=== PATIENT | male | born 1990 | race American Indian/Alaskan Native ===

== ENCOUNTER 2017-06-20 10:53 | Emergency (ER) | payer SELFPAY ==
[2017-06-20 11:36] VITALS: BP 137/84
[2017-06-20] MEDS ORDERED: TETRACAINE 0.5% OU PRN (18:23)
[2017-06-20] MEDS ORDERED: FUL-GLO OP ONE (18:23)
--- NOTE | 2017-06-20 18:28 | Emergency Department Report ---
ED Eye Problem HPI - General Chief complaint: Eye Problems Stated complaint: RETINAL DETATCHMENT Time Seen by Provider: 06/20/17 18:23 Source: patient Mode of arrival: Ambulatory Limitations: No Limitations - History of Present Illness Initial comments: This is a 26-year-old male nontoxic, well nourished in appearance, no acute signs of distress presents to the ED with c/o of bilateral blurry vision and seeing floaters for a few months. Patient denies any eye pain, fever, chills, nausea, vomiting, headache, stiff neck, chest pain, shortness of breath, eye discharge, numbness or tingling. Patient denies any trauma to the region. Patient stated he did not follow-up with a primary care doctor due to. Patient denies PMH. chief complaint: other (blurry vision) -: month(s) (few) Onset Description: gradual Location: both eyes If Injury: none Severity scale (0 -10): 0 Consistency: constant Associated Symptoms: none Treatments Prior to Arrival: none - Related Data Home Medications Medication Instructions Recorded Confirmed Last Taken Unobtainable 06/20/17 06/20/17 Unknown Allergies Allergy/AdvReac Type Severity Reaction Status Date / Time No Known Allergies Allergy Verified 06/20/17 11:29 ED Review of Systems ROS: Stated complaint: RETINAL DETATCHMENT Other details as noted in HPI Constitutional: denies: chills, fever Eyes: denies: eye pain, eye discharge, vision change ENT: other (blurry vision). denies: ear pain, throat pain Respiratory: denies: cough, shortness of breath, wheezing Cardiovascular: denies: chest pain, palpitations Endocrine: no symptoms reported Gastrointestinal: denies: abdominal pain, nausea, diarrhea Genitourinary: denies: urgency, dysuria Musculoskeletal: denies: back pain, joint swelling, arthralgia Skin: denies: rash, lesions Neurological: denies: headache, weakness, paresthesias Psychiatric: denies: anxiety, depression Hematological/Lymphatic: denies: easy bleeding, easy bruising ED Past Medical Hx - Past Medical History Previous Medical History?: No - Surgical History Past Surgical History?: No - Social History Smoking Status: Never Smoker Substance Use Type: Alcohol, Marijuana - Medications Home Medications: Home Medications Medication Instructions Recorded Confirmed Last Taken Type Unobtainable 06/20/17 06/20/17 Unknown History ED Physical Exam - General Limitations: No Limitations General appearance: alert, in no apparent distress - Head Head exam: Present: atraumatic, normocephalic - Eye Eye exam: Present: normal appearance, PERRL, EOMI. Absent: scleral icterus, conjunctival injection, nystagmus, periorbital swelling, periorbital tenderness Pupils: Present: normal accommodation - Expanded Eye Exam Expanded Pupils: Regular, Round: Bilateral, Reactive: Bilateral Sclera/Conjunctival: Normal Inspection: Bilateral Visual acuity (R) = 20/: 50 Visual acuity (L) = 20/: 40 With correction: No IOP measured with: Tonopen (12 right. 14 left.) - ENT ENT exam: Present: normal exam, normal orophraynx, mucous membranes moist, TM's normal bilaterally, normal external ear exam - Neck Neck exam: Present: normal inspection, full ROM. Absent: tenderness, meningismus, lymphadenopathy, thyromegaly - Respiratory Respiratory exam: Present: normal lung sounds bilaterally. Absent: respiratory distress, wheezes, rales, rhonchi, stridor, chest wall tenderness, accessory muscle use, decreased breath sounds, prolonged expiratory - Cardiovascular Cardiovascular Exam: Present: regular rate, normal rhythm. Absent: systolic murmur, diastolic murmur, rubs, gallop - GI/Abdominal GI/Abdominal exam: Present: soft, normal bowel sounds - Rectal Rectal exam: Present: deferred - Extremities Exam Extremities exam: Present: normal inspection - Back Exam Back exam: Present: normal inspection - Neurological Exam Neurological exam: Present: alert, oriented X3 - Psychiatric Psychiatric exam: Present: normal affect, normal mood - Skin Skin exam: Present: warm, dry, intact, normal color. Absent: rash - Other Other exam information: Under Hicks lamp, I used fluorescein and tetracaine to examine cornea for corneal abrasion or foreign body, negative for coronary abrasion or foreign body noted upon exam. ED Course Vital Signs 06/20/17 11:29 Temperature 98.4 F Pulse Rate 103 H Respiratory 18 Rate Blood Pressure 137/84 O2 Sat by Pulse 100 Oximetry - Reevaluation(s) Reevaluation #1: 06/20/17 18:29 Patient is speaking in full sentences with no signs of distress noted. ED Medical Decision Making - Medical Decision Making This is a 26-year-old male that presents with possible viral detachment. Patient stable and was examined by me. Upon examination there is normal ocular movement and patient has a normal acuity vision. Negative [place] exam. Normal Isaias-Pen exam. Patient was instructed to Follow-up with a smudger in 24 hours or if symptoms worsen and continue return to emergency room as soon as possible. At time time of discharge, the patient does not seem toxic or ill in appearance. No acute signs of distress noted. Patient agrees to discharge treatment plan of care. No further questions noted by the patient. Critical care attestation.: If time is entered above; I have spent that time in minutes in the direct care of this critically ill patient, excluding procedure time. ED Disposition Clinical Impression: Blurry vision, bilateral Floaters in visual field Qualifiers: Laterality: bilateral Qualified Code(s): H43.393 - Other vitreous opacities, bilateral Disposition: DC-01 TO HOME OR SELFCARE Is pt being admited?: No Does the pt Need Aspirin: No Condition: Stable Additional Instructions: Follow-up with a smudger in 24 hours or if symptoms worsen and continue return to emergency room as soon as possible. Referrals: PRIMARY CAREMD [Primary Care Provider] - 3-5 Days [facility] [Outside] - 3-5 Days DOUGLAS MEDINA MD [Staff Physician] - 24 Hours [facility] [Provider Group] - 24 Hours Forms: Work/School Release Form(ED)
== END 2017-06-20 18:45 | disposition home or self-care (01) ==
LOC: ED 10:53
DX: H43.393 Other vitreous opacities, bilateral (principal); F12.10 Cannabis abuse, uncomplicated
CPT/HCPCS: 99283

== ENCOUNTER 2018-02-23 09:54 | Emergency (ER) | payer SELFPAY ==
--- NOTE | 2018-02-23 13:02 | Emergency Department Report ---
ED ENT HPI - General Chief complaint: Urogenital-Male Stated complaint: GLUCOSE CHECK/STD CHECK Source: patient Mode of arrival: Ambulatory Limitations: No Limitations - History of Present Illness Initial comments: This is a 27-year-old -Hung[place] male who presents with blurry vision for one week. Patient states he was seen here a few months back and referred to an cherry pitter for similar symptoms. Patient states he is followed by [facility] ophthalmology and diagnosed with cystoid macular edema. He was referred to a retinal specialist but patient was unable to follow up with them due to no insurance. Patient states he was treated with antibiotics and steroids which initially improved symptoms. Patient states shortly after completing antibiotics blurry vision returned. 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 He is to using a flashlight to improve vision. Denies floaters, pain, discharge, redness, or swelling. - Related Data Home Medications Medication Instructions Recorded Confirmed Last Taken Unobtainable 06/20/17 06/20/17 Unknown Allergies Allergy/AdvReac Type Severity Reaction Status Date / Time No Known Allergies Allergy Verified 06/20/17 11:29 ED Dental HPI - General Chief complaint: Urogenital-Male Stated complaint: GLUCOSE CHECK/STD CHECK Source: patient Mode of arrival: Ambulatory Limitations: No Limitations - Related Data Home Medications Medication Instructions Recorded Confirmed Last Taken Unobtainable 06/20/17 06/20/17 Unknown Allergies Allergy/AdvReac Type Severity Reaction Status Date / Time No Known Allergies Allergy Verified 06/20/17 11:29 ED Review of Systems ROS: Stated complaint: GLUCOSE CHECK/STD CHECK Other details as noted in HPI ED Past Medical Hx - Past Medical History Previous Medical History?: No - Surgical History Past Surgical History?: No - Social History Smoking Status: Never Smoker Substance Use Type: Alcohol, Marijuana - Medications Home Medications: Home Medications Medication Instructions Recorded Confirmed Last Taken Type Unobtainable 06/20/17 06/20/17 Unknown History ED Physical Exam - General Limitations: No Limitations ED Course Vital Signs 02/23/18 10:26 Temperature 98.9 F Pulse Rate 92 H Respiratory 16 Rate Blood Pressure 121/72 O2 Sat by Pulse 99 Oximetry Critical care attestation.: If time is entered above; I have spent that time in minutes in the direct care of this critically ill patient, excluding procedure time. ED Disposition Condition: Stable Referrals: PRIMARY CARE, [Primary Care Provider] - 3-5 Days
--- NOTE | 2018-02-23 13:05 | Emergency Department Report ---
ED General Adult HPI - General Chief complaint: Urogenital-Male Stated complaint: GLUCOSE CHECK/STD CHECK Source: patient Mode of arrival: Ambulatory Limitations: No Limitations - History of Present Illness Initial comments: This is a 27-year-old -[place] male who presents with blurry vision for one week. Patient states he was seen here a few months back and referred to an garbage collector for similar symptoms. Patient states he is followed by [facility]ner ophthalmology and diagnosed with cystoid macular edema. He was referred to a retinal specialist but patient was unable to follow up with them due to no insurance. Patient states he was treated with antibiotics and steroids which initially improved symptoms. Patient states shortly after completing antibiotics blurry vision returned. He is requesting a second opinion. 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 He is to using a flashlight to improve vision. Denies floaters, pain, discharge, redness, or swelling. Onset/Timin -: week(s) Location: eyes Radiation: non-radiation Severity scale (0 -10): 2 Consistency: intermittent Improves with: none Worsens with: none Associated Symptoms: other (blurry vision) Treatments Prior to Arrival: none - Related Data Home Medications Medication Instructions Recorded Confirmed Last Taken Unobtainable 06/20/17 06/20/17 Unknown Allergies Allergy/AdvReac Type Severity Reaction Status Date / Time No Known Allergies Allergy Verified 06/20/17 11:29 ED Review of Systems ROS: Stated complaint: GLUCOSE CHECK/STD CHECK Other details as noted in HPI Constitutional: denies: chills, fever Eyes: vision change (blurry vision). denies: eye pain, eye discharge Respiratory: denies: cough, shortness of breath, wheezing Cardiovascular: denies: chest pain, palpitations Gastrointestinal: denies: abdominal pain, nausea, diarrhea Neurological: denies: headache, weakness, paresthesias Psychiatric: denies: anxiety, depression ED Past Medical Hx - Past Medical History Previous Medical History?: No - Surgical History Past Surgical History?: No - Social History Smoking Status: Never Smoker Substance Use Type: Alcohol, Marijuana - Medications Home Medications: Home Medications Medication Instructions Recorded Confirmed Last Taken Type Unobtainable 06/20/17 06/20/17 Unknown History ED Physical Exam - General Limitations: No Limitations General appearance: alert, in no apparent distress - Eye Eye exam: Present: PERRL, EOMI. Absent: scleral icterus, conjunctival injection , nystagmus, periorbital swelling, periorbital tenderness Pupils: Present: normal accommodation - Respiratory Respiratory exam: Present: normal lung sounds bilaterally. Absent: respiratory distress - Cardiovascular Cardiovascular Exam: Present: regular rate, normal rhythm. Absent: systolic murmur, diastolic murmur, rubs, gallop - GI/Abdominal GI/Abdominal exam: Present: soft, normal bowel sounds - Neurological Exam Neurological exam: Present: alert, oriented X3 - Psychiatric Psychiatric exam: Present: normal affect, normal mood - Skin Skin exam: Present: warm, dry, intact, normal color. Absent: rash ED Course Vital Signs 02/23/18 10:26 Temperature 98.9 F Pulse Rate 92 H Respiratory 16 Rate Blood Pressure 121/72 O2 Sat by Pulse 99 Oximetry ED Medical Decision Making - Medical Decision Making Patient was examined by me. Vitals are normal and patient is in no acute distress. Point of care glucose was obtained and normal. Patient is currently followed by [facility]ner ophthalmology and diagnosed with Sr. with macular edema. Follow-up with ophthalmology and retinal specialist for continuous care. Visual acuity 20/40 both, 20/30 right, & 20/40 left. Vision is the name as original presentation. Plan discussed with patient to discharge. He agrees with ER plan. Patient shortly to follow-up with health Department for full STD screen. Patient discharged home in stable condition. Follow up with PCP in 2-3 days. Critical care attestation.: If time is entered above; I have spent that time in minutes in the direct care of this critically ill patient, excluding procedure time. ED Disposition Clinical Impression: Blurred vision Disposition: DC-01 TO HOME OR SELFCARE Is pt being admited?: No Does the pt Need Aspirin: No Condition: Stable Instructions: Blurred Vision (ED) Additional Instructions: Follow up with garbage collector and retinal specialist in 24-48 hours. Referrals: DOUGLAS MEDINA MD [Staff Physician] - 3-5 Days [facility] [address] [Provider Group] - 3-5 Days Forms: Work/School Release Form(ED) Time of Disposition: 13:41 Print Language: LAO
[2018-02-23 14:58] VITALS: BP 126/82
== END 2018-02-23 14:58 | disposition home or self-care (01) ==
LOC: ED 09:54
DX: H53.8 Other visual disturbances (principal); F12.10 Cannabis abuse, uncomplicated
CPT/HCPCS: 82962; 99282

== ENCOUNTER 2019-03-07 10:47 | Emergency (ER) | payer SELFPAY ==
--- NOTE | 2019-03-07 11:18 | Event Note ---
ED Screening Note Date of service: 03/07/19 Time: 11:12 ED Screening Note: 28 y o male presents with blurred vision and pain to right eye x wednesday photo sensitivity and blurred vision to left eye began today hx of neurosyphilis, HIV recent dx last year march This initial assessment/diagnostic orders/clinical plan/treatment(s) is/are subject to change based on patients health status, clinical progression and re- assessment by fellow clinical providers in the ED. Further treatment and workup at subsequent clinical providers discretion. Patient/guardian urged not to elope from the ED as their condition may be serious if not clinically assessed and managed. Initial orders include: EYE exam
[2019-03-07] MEDS ORDERED: FLUORESCEIN 1 MG STRIP OP ONE (12:58)
[2019-03-07] MEDS ORDERED: TETRACAINE 0.5% OPHTH SOLN 4ML OU ONE (12:58)
--- NOTE | 2019-03-07 13:41 | Emergency Department Report ---
HPI - General Chief Complaint: Eye Problems Time Seen by Provider: 03/07/19 11:10 - HPI HPI: 28-year-old male presents to the emergency department with a complaint of a 3 to four-day history of right eye redness and blurry vision. Patient had some discomfort to the right eye at first but that has since resolved. There has been some mild tearing or drainage but he denies any discharge, crusting, matting. Patient denies any trauma to the eye or any known event where something may have gotten into the eye. He bought some [id number]-[id number] saline eyedrops without any relief. Patient has a past medical history of HIV, neurosyphilis with ocular syphilis. Patient says that he has seen an brewing technician in the past, Dr. Jose Antonio Salas, prior to the diagnosis of the ocular syphilis. He denies any headache, fever. ED Past Medical Hx - Past Medical History Previous Medical History?: Yes Hx Deep Vein Thrombosis: No Hx Asthma: Yes Hx HIV: Yes - Surgical History Past Surgical History?: No Hx Pacemaker: No Hx Internal Defibrillator: No - Social History Smoking Status: Never Smoker Substance Use Type: Alcohol, Marijuana - Medications Home Medications: Home Medications Medication Instructions Recorded Confirmed Last Taken Type Penicillin G Potassium [Pfizerpen 4 mil.units IV Q4HR 14 Days vial 03/22/18 Unknown Rx INJ] oxyCODONE /ACETAMINOPHEN [Percocet 1 tab PO Q6H PRN #10 tablet 03/22/18 Unknown Rx 5/325 mg] Prednisolone Acetate/Pf 1 drop OD Q6H #1 bottle 03/07/19 Unknown Rx [Prednisolone Acet 1% Eye Drop] Tobramycin [Tobrex] 1 drop OD Q4H #1 bottle 03/07/19 Unknown Rx ED Review of Systems ROS: Stated complaint: EYE REDNESS/BLURRED VISION Other details as noted in HPI Comment: All other systems reviewed and negative Constitutional: denies: chills, fever Eyes: eye pain (resolved), vision change, other (eye redness) ENT: denies: ear pain, throat pain Neurological: denies: headache, weakness Physical Exam - Physical Exam Vital Signs: Vital Signs 03/07/19 11:10 Temperature 98.6 F Pulse Rate 110 H Respiratory 18 Rate Blood Pressure 125/75 O2 Sat by Pulse 98 Oximetry Physical Exam: GENERAL: The patient is well-developed well-nourished. HENT: Normocephalic. Atraumatic. Patient has moist mucous membranes. EYES: Extraocular motions are intact. The right pupil is slightly dilated compared to the left. Both pupils are reactive to light and brisk. There was no fluorescein uptake and no obvious corneal defect. There is diffuse right conjunctival injection. Visual acuity: OD 20/100, OS 20/200, both eyes 20/50. NECK: Supple. Trachea is midline. CHEST/LUNGS: Clear to auscultation. There is no respiratory distress noted. HEART/CARDIOVASCULAR: Regular. There is no tachycardia. There is no murmur. ABDOMEN: There is no abdominal distention. SKIN: Skin is warm and dry. NEURO: The patient is awake, alert, and oriented. The patient is cooperative. The patient has no focal neurologic deficits. Normal speech. MUSCULOSKELETAL: There is no tenderness or deformity. There is no evidence of acute injury. ED Course Vital Signs 03/07/19 11:10 Temperature 98.6 F Pulse Rate 110 H Respiratory 18 Rate Blood Pressure 125/75 O2 Sat by Pulse 98 Oximetry - Consultations Consultation #1: I spoke with the infectious disease physician on-call, Dr. De Anda, regarding the patient's history of neuro and ocular syphilis with previous complaints of blurry vision. We also discussed his current visit for blurry vision and eye redness. Dr. De Anda says that if the patient was treated with the 2 week outpatient IV penicillin treatment that was previously prescribed by infectious disease, then the patient is safe for discharge home. Otherwise, he would need re-admission. 03/07/19 14:33 ED Medical Decision Making - Medical Decision Making This patient presents to the emergency department with some right eye redness, some pain that has since resolved, and some blurry vision. The patient has a significant history for previous neurosyphilis and ocular syphilis or ocular involvement of the tertiary syphilis. The patient was treated appropriately a year ago when he was admitted for these symptoms and complaints. On examination, the patient did not have any fluorescein uptake showing any type of corneal defect. He has poor visual acuity but the left eye is worse than the currently affected right eye and the patient has poor vision overall. He has no complaints of any headache. Extraocular motion intact. The right pupil is slightly more dilated than the left but both react briskly to light. I spoke with the patient's previous brewing technician who recommended prednisolone acetate drops. I will also be giving the patient antibacterial drops as well given the diffuse conjunctival injection. I also spoke with infectious disease regarding the fact that the patient is still sexually active but Dr. De Anda says that the patient was treated appropriately as long as the patient continued the two-week outpatient IV penicillin therapy, which the patient says that he did compliantly. There has been no new lesions or any genitourinary symptoms. The patient understands the importance of following up as soon as possible with ophthalmology and says that he will do so in the next 1-2 days. He has also been instructed to follow-up with infectious disease. He will return to the emergency department immediately with any worsening of his symptoms or any acute distress. - Differential Diagnosis conjunctivitis, corneal ulcer/abrasion, iritis Critical Care Time: No Critical care attestation.: If time is entered above; I have spent that time in minutes in the direct care of this critically ill patient, excluding procedure time. ED Disposition Clinical Impression: Blurry vision, Redness of right eye, History of neurosyphilis Disposition: TO HOME OR SELFCARE Is pt being admited?: No Condition: Stable Additional Instructions: You were seen today for your blurry vision and right eye redness. Given your history of neurosyphilis and ocular syphilis, it is imperative that you follow- up with both ophthalmology and infectious disease as soon as possible. I am starting you on antibiotic and steroid eyedrops. If your symptoms worsen, stopped the medications and return to the emergency department immediately. Prescriptions: Prednisolone Acetate/Pf [Prednisolone Acet 1% Eye Drop] 1 drop OD Q6H #1 bottle Tobramycin [Tobrex] 1 drop OD Q4H #1 bottle Referrals: JOSE ANTONIO SALAS MD [Staff Physician] - MILA STINSON MD [Staff Physician] - [place] Time of Disposition: 14:33
[2019-03-07 14:38] VITALS: BP 109/53
== END 2019-03-07 14:40 | disposition home or self-care (01) ==
LOC: ED 10:47
DX: A52.3 Neurosyphilis, unspecified (principal); H53.8 Other visual disturbances; J45.909 Unspecified asthma, uncomplicated; Z21 Asymptomatic human immunodeficiency virus [HIV] infection status; F12.10 Cannabis abuse, uncomplicated; Z79.899 Other long term (current) drug therapy
CPT/HCPCS: 99283

== ENCOUNTER 2019-05-30 16:42 | Emergency (ER) | payer OTHER | END 2019-05-30 21:59 | disposition home or self-care (01) | LOC: ED 16:42 ==